=== PATIENT | male | born 1940 | race Caucasian/White ===

== ENCOUNTER 2019-08-16 13:36 | Emergency (ER) | payer MEDICARE ==
[~2019-08-16] VITALS: Ht 172.7 cm; Wt 108.9 kg
[2019-08-16 13:39] VITALS: Ht 172.7 cm; Wt 108.9 kg
[2019-08-16 16:11] VITALS: BP 142/74
== END 2019-08-16 16:11 | disposition home or self-care (01) ==
LOC: ED 13:36
DX: S83.422A Sprain of lateral collateral ligament of left knee, initial encounter (principal); S83.412A Sprain of medial collateral ligament of left knee, initial encounter; R10.9 Unspecified abdominal pain; I10 Essential (primary) hypertension; Z90.89 Acquired absence of other organs; Z95.1 Presence of aortocoronary bypass graft; W01.0XXA Fall on same level from slipping, tripping and stumbling without subsequent striking against object, initial encounter; Y93.01 Activity, walking, marching and hiking; Y92.89 Other specified places as the place of occurrence of the external cause; Y99.8 Other external cause status